=== PATIENT | female | born 1995 | race Caucasian/White ===

== ENCOUNTER 2017-11-30 05:50 | Inpatient (IN) ==
[2017-11-30 06:13] LABS: Microscopic, Urine URINE MICROSCOPIC (MICROSCOPIC)
[2017-11-30 06:15] LABS: Basophils # 0.1 K/mm3 (0-0.2); Basophils % 0.3 % (0.1-2.0); Eosinophils # 0.3 K/mm3 (0.0-0.4); Eosinophils % 1.6 % (0.1-12.0); Hematocrit 41.4 % (37.0-47.0); Hemoglobin 13.5 g/dL (12.2-16.2); Lymphocytes # 2.9 K/mm3 (0.7-4.5); Mean Corpuscular HGB Conc 32.7 g/dL (31.8-35.4); Mean Corpuscular Hemoglobin 29.5 pg (27.0-31.2); Mean Corpuscular Volume 90.1 fl (81-99); Mean Platelet Volume 7.7 fl (7.4-10.4); Monocytes # 1.3 K/mm3 (0.1-1.0); Monocytes % 6.8 % (1.7-9.3); Neutrophils # 14.7 K/mm3 (1.8-7.8); Neutrophils % 76.4 % (37.0-80.0); Platelet Count 399 K/mm3 (142-424); Red Cell Distribution Width 12.6 % (11.5-17.5); White Blood Count 19.2 K/mm3 (4.8-10.8)
[2017-11-30 06:17] LABS: Appearance,Urine CLOUDY (Clear); Bilirubin,Urine Negative (Negative); Blood, Urine 3+ (Negative); Color,Urine YELLOW (Yellow); Glucose,Urine (UA) Negative (Negative); Ketones,Urine Negative (Negative); Leukocyte Esterase,Urine 2+ (Negative); Protein,Urine TRACE (Negative); Specific Gravity, Urine 1.025 (1.005-1.030)
[2017-11-30 06:25] LABS: Bacteria,Urine 4+ /lpf; Mucus,Urine 1+ /lpf
[2017-11-30 06:27] LABS: Albumin/Globulin Ratio 0.6 (1.1-1.8); Anion Gap 11.7 mEq/L (5-15); Bilirubin,Total 0.5 mg/dL (0.2-1.0); Calcium 8.6 mg/dL (8.5-10.1); Globulin 5.1 gm/dl (1.3-3.2); Potassium 3.7 mmoL/L (3.5-5.1); Total Protein,Serum 8.1 gm/dL (6.4-8.2)
[2017-11-30 06:52] LABS: C-Reactive Protein 18.6 mg/L (0.0-0.9)
[2017-11-30 07:06] LABS: Eosinophils % 1 % (0-3); Lymphocytes % 13 % (10-50); Monocytes % 8 % (2-9); Neutrophils % 74 % (42-76); Total Cells Counted 100
--- NOTE | 2017-11-30 07:21 | Emergency Department Note ---
ED Disposition Condition on Discharge: Good - Critical Care Critical Care Time: No <Bautista Benton S - Last Filed: 11/30/17 07:40> Condition on Discharge: Fair - Critical Care Critical Care Time: No <CarasergeEdwinmarlena - Last Filed: 11/30/17 11:14> Clinical Impression: Ovarian cyst Acute appendicitis Qualifiers: Acute appendicitis type: unspecified acute appendicitis type Qualified Code(s): K35.80 - Unspecified acute appendicitis Disposition: Still a Patient Instructions: DI for Acute Abdomen Referrals: Provider,Referral, [Primary Care Provider] - Attestation: On 11/30/17, the high probability of a clinically significant, sudden or life threatening deterioration of the following system(s) required my full and direct attention, intervention and personal management. The time I documented below is in addition to time spent performing reported procedures but includes the following listed in this critical care notation. Medical Decision Making - Medical Records Medical records reviewed: Yes: I reviewed the patient's medical records. - James Inquiry Pt receiving controlled substance: No - Lab Data Lab results reviewed: Yes: I reviewed the patient's lab results. Result diagrams: 11/30/17 06:00 11/30/17 06:00 - CT Data CT Scan: Abdomen, Pelvis Time Received: 07:[address] Reviewed: Yes: I have viewed the radiologist's interpretation Preliminary Findings: Abnormal (appendicitis) - Physician Consults Physician Consulted: nino Reason -: Pt condition <Bautista Benton - Last Filed: 11/30/17 07:40> - James Inquiry Pt receiving controlled substance: No James was queried for this patient: No - Lab Data Result diagrams: 11/30/17 06:00 11/30/17 06:00 - CT Data CT Scan: Abdomen, Pelvis ED CT Reviewed: Yes: I have viewed the radiologist's interpretation Preliminary Findings: Abnormal <Haroon Ambrose - Last Filed: 11/30/17 11:14> Vital Signs: 11/30/17 05:51 11/30/17 06:35 11/30/17 08:09 Temperature 98.7 F Temperature Source Oral Pulse Rate [Right Radial] 96 H 105 H 114 H Respiratory Rate 16 24 Blood Pressure [Left Arm] Blood Pressure [Right Arm] 134/99 H 114/85 Blood Pressure Mean [Left Arm] Blood Pressure Mean [Right Arm] 110 94 Blood Pressure Source [Left Arm] Blood Pressure Position [Left Arm] Blood Pressure Position [Right Arm] Supine 02 Sat by Pulse Oximetry 96 95 98 Oxygen Delivery Method Room Air Room Air 11/30/17 09:00 11/30/17 09:41 11/30/17 10:02 Temperature 99.3 F 102.7 F H 101.5 F H Temperature Source Oral Oral Oral Pulse Rate [Right Radial] 130 H 141 H 140 H Respiratory Rate 20 20 22 Blood Pressure [Left Arm] 143/89 H 141/88 H 131/80 Blood Pressure [Right Arm] Blood Pressure Mean [Left Arm] 107 105 97 Blood Pressure Mean [Right Arm] Blood Pressure Source [Left Arm] Automatic Cuff Automatic Cuff Automatic Cuff Blood Pressure Position [Left Arm] Supine Sitting Sitting Blood Pressure Position [Right Arm] 02 Sat by Pulse Oximetry 98 97 99 Oxygen Delivery Method Room Air Room Air Room Air - Lab Data Lab Results 11/30/17 05:50: Urine Color Yellow, Urine Appearance Cloudy, Urine pH 7.0, Ur Specific [place] 1.025, Urine Protein Trace, Urine Glucose (UA) Negative, Urine Ketones Negative, Urine Blood 3+, Urine Nitrate Negative, Urine Bilirubin Negative, Urine Urobilinogen 1.0, Ur Leukocyte Esterase 2+ A, Urine RBC 10-20, Urine WBC 5-10, Ur Squamous Epith Cells 3-5, Urine Bacteria 4+, Urine Mucus 1+ 11/30/17 05:50: Urine HCG, Qual Negative 11/30/17 06:00: WBC 19.2 H, RBC 4.60, Hgb 13.5, Hct 41.4, MCV 90.1, MCH 29.5, MCHC 32.7, RDW 12.6, Plt Count 399, MPV 7.7, Neut % (Auto) 76.4, Lymph % (Auto) 15.0, [place] % (Auto) 6.8, Eos % (Auto) 1.6, Baso % (Auto) 0.3, Neut # (Auto) 14.7 H, Lymph # (Auto) 2.9, [place] # (Auto) 1.3 H, Eos # (Auto) 0.3, Baso # (Auto) 0.1, Total Counted 100, Neutrophils % (Manual) 74, Band Neutrophils % 2.0, Lymphocytes % (Manual) 13, Atypical Lymphs % 2.0, Monocytes % (Manual) 8, Eosinophils % (Manual) 1, Platelet Estimate Normal 11/30/17 06:00: Sodium 137, Potassium 3.7, Chloride 102, Carbon Dioxide 27, Anion Gap 11.7, BUN 11, Creatinine 0.70, Estimated Creat Clear 147, Estimated GFR 104, Est GFR ( Amer) 125, Glucose 140 H, Calcium 8.6, Total Bilirubin 0.5, AST 14 L, ALT 14, Alkaline Phosphatase 86, C-Reactive Protein 18.6 H, Total Protein 8.1, Albumin 3.0 L, Globulin 5.1 H, Albumin/Globulin Ratio 0.6 L, Amylase 34, Lipase 104 11/30/17 06:00: ESR 47 H Orders (Tests/Meds): ED MEDICATIONS Generic Name Dose Route Start Last Admin Trade Name Freq PRN Reason Stop Dose Admin Sodium Chloride 10 ml 11/30/17 09:43 Saline Flush 10ml Syringe IV 11/30/17 21:43 NEEDED PRN Maintain IV Site Discontinued Medications Generic Name Dose Route Start Last Admin Trade Name Freq PRN Reason Stop Dose Admin Diatrizoate Meglum/Diatrizoate Sod 30 ml 11/30/17 07:38 11/30/17 07:42 Gastrografin 66%-10% 30ml PO 11/30/17 07:39 30 ml ONCE ONE Administration Famotidine 20 mg 11/30/17 05:57 11/30/17 05:58 Pepcid 20mg/2ml Vial IV 11/30/17 05:58 20 mg ONCE ONE Administration Sodium Chloride 1,000 mls @ 999 mls/hr 11/30/17 06:00 11/30/17 05:58 Sod Chlor 0.9% 1000ml Bag IV 11/30/17 07:00 999 mls/hr .Q1H1M DANIEL Administration Sodium Chloride 1,000 mls @ 999 mls/hr 11/30/17 09:45 11/30/17 09:46 Sod Chlor 0.9% 1000ml Bag IV 11/30/17 10:45 999 mls/hr .Q1H1M DANIEL Administration Ertapenem 1 gm/ Sodium 50 mls @ 100 mls/hr 11/30/17 09:57 11/30/17 11:10 Chloride IV 11/30/17 09:58 Not Given ONCE ONE Protocol Iopamidol 75 ml 11/30/17 09:52 11/30/17 09:53 [id number]; 75ml Vial IV 11/30/17 09:53 75 ml ONCE ONE Administration Protocol Ketorolac Tromethamine 30 mg 11/30/17 06:26 11/30/17 06:32 Toradol 30mg/Ml Vial IV 11/30/17 06:27 30 mg ONCE ONE Administration Metoclopramide HCl 10 mg 11/30/17 05:57 11/30/17 05:58 Reglan 10mg/2ml Vial IVP 11/30/17 05:58 10 mg ONCE ONE Administration Sodium Chloride 10 ml 11/30/17 09:52 11/30/17 09:53 Rad-Saline Flush 10ml Syringe IV 11/30/17 09:53 10 ml ONCE ONE Administration ORDERS Category Date Time Status Lactic Acid Stat Lab 11/30/17 10:40 Received Urinalysis and Microscopic Stat Lab 11/30/17 05:50 Ordered Blood Culture Stat Micro 11/30/17 10:40 Received Urine Culture Stat Micro 11/30/17 05:50 Received - CT Data Findings Narrative: [address] report with contrast: MPRESSION: 1. Normal appendix not identified. There does appear to be a thickened appendix consistent with appendicitis with inflammatory changes in the pelvis and a small amount fluid in the pelvis. There are multiple unopacified bowel loops present within the abdomen/pelvis which could obscure or mimic pathology. If clinical findings are not concordant then, consider repeating exam with IV and oral contrast administration 2. Right adnexal soft tissue mass at 5 x 4.6 cm. This could represent an enlarged ovary. Abscess or phlegmonous changes included in the differential diagnosis. (Bautista Benton) [address] report with contrast: MPRESSION: 1. Normal appendix not identified. There does appear to be a thickened appendix consistent with appendicitis with inflammatory changes in the pelvis and a small amount fluid in the pelvis. There are multiple unopacified bowel loops present within the abdomen/pelvis which could obscure or mimic pathology. If clinical findings are not concordant then, consider repeating exam with IV and oral contrast administration 2. Right adnexal soft tissue mass at 5 x 4.6 cm. This could represent an enlarged ovary. Abscess or phlegmonous changes included in the differential diagnosis. (Haroon Ambrose) Medical Decision Narrative: Incoming physician Dr. Ambrose; s: I reviewed Dr. Benton's and Dr. Zheng's report the patient had right lower quadrant pain for 2 days came to the ED was found to have a white count of [address] scan suspicious for appendicitis with recommendations for a CT scan p.o. study. Currently the patient had no pain she had no vomiting. O: WBCs are 19k Soft abdomen with right lower quadrant tenderness chest clear to auscultation heart is regular rate and rhythm. Lower extremity no edema. A/p: Right lower quadrant pain CT scan with p.o. and IV contrast is pending. ED course: Upon return from the CT scan the patient developed a fever of 101.5F , covers were removed IV fluids were given and I ordered blood cultures and lactic acid. I notified Dr. Jang of the clinical updates and that the CT scan report is ready. P.S. She did not receive IV antibiotics due to preop protocol at [facility]. (Bautista Benton) Incoming physician Dr. Ambrose; s: I reviewed Dr. Benton's and Dr. Zheng's report the patient had right lower quadrant pain for 2 days came to the ED was found to have a white count of [address] scan suspicious for appendicitis with recommendations for a CT scan p.o. study. Currently the patient had no pain she had no vomiting. O: WBCs are 19k Soft abdomen with right lower quadrant tenderness chest clear to auscultation heart is regular rate and rhythm. Lower extremity no edema. A/p: Right lower quadrant pain CT scan with p.o. and IV contrast is pending. ED course: Upon return from the CT scan the patient developed a fever of 101.5F , covers were removed IV fluids were given and I ordered blood cultures and lactic acid. I notified Dr. Jang of the clinical updates and that the CT scan report is ready. P.S. She did not receive IV antibiotics due to preop protocol at [facility]. 1110 temperature came down to 9 999.6 she was taken by the OR crew to the operating room. (Haroon Ambrose) Nausea/Vomiting/Diarrhea HPI - General Mode of Arrival: EMS Source of Information: Patient, Significant Other, Medical Record Limitations: No Limitations Description of Symptoms (Recalled from ER Triage Doc. by RN): pt states that 2-3 days ago she had some right lower quad pain that went away. pt states that the pain returned tonight and is unbearable. pt states she is having some nausea/vomiting also. pt denies diarrhea. - History of Present Illness MD complaint: nausea, vomiting, abdominal pain Onset (ago): day(s) Associated Abdominal Pain: Yes Location of pain: RLQ Severity: moderate Associated symptoms: denies other symptoms <Bautista Benton - Last Filed: 11/30/17 07:40> <Haroon Ambrose - Last Filed: 11/30/17 11:14> - General Chief complaint: Abdominal Pain Stated complaint: abdominal pain Time Seen by Provider: 11/30/17 06:20 - History of Present Illness HPI Narrative: onset of progressive rt lower abd pain over the last few days with n/v (Bautista Benton) onset of progressive rt lower abd pain over the last few days with n/v (Haroon Ambrose) - Related Data Home Medications Medication Instructions Recorded Confirmed No Known Home Medications 11/30/17 11/30/17 Allergies Allergy/AdvReac Type Severity Reaction Status Date / Time No Known Allergies Allergy Verified 11/30/17 05:57 [facility] History I have reviewed the patient's past medical history: Yes Medical History: Denies:: Cancer, Diabetes Mellitus Type 1, Diabetes Mellitus Type 2, MRSA Amputation: No - Social History Smoking Status: Never smoker Alcohol Intake: never - Psychiatric History Expresses thoughts of harming self/others: None Suicide Plan Description: No Plan <Bautista Benton - Last Filed: 11/30/17 07:40> ROS Obtained: Yes All systems reviewed & no additional complaints - Constitutional Constitutional: Denies fever(s) - Eyes Eyes: Denies change in vision - ENT Ears, Nose, Mouth, and Throat: Denies sore throat - Cardiovascular Cardiovascular: Denies chest pain - Respiratory Respiratory: No cough - Gastrointestinal Gastrointestingal: Reports: as per HPI, abdominal pain, nausea, vomiting - Genitourinary Female Genitourinary: Denies hematuria - Musculoskeletal Musculoskeletal: Denies joint pain - Integumentary/Breasts Skin/Breast: Denies rash - Neurologic Neurologic: Denies seizure-like activity <Bautista Benton - Last Filed: 11/30/17 07:40> Physical Exam - General General appearance: alert, in no apparent distress - Head Head exam: normocephalic - Eye Eye exam: Present: PERRL, EOMI - ENT ENT exam: Present: mucous membranes moist - Neck Neck exam: Present: trachea midline - Respiratory Respiratory exam: Present: normal lung sounds bilaterally - Cardiovascular Cardiovascular exam: Present: regular rate - Abdominal Exam Abdominal exam: Present: soft, tenderness at McBur[place]'s Point Abdominal tenderness: Present: RLQ, moderate - Extremities Exam Extremities exam: Present: full ROM - Neurological Exam Neurological exam: Present: alert, oriented X3, CN II-XII intact - Psychiatric Psychiatric exam: Present: normal affect - Skin Skin exam: Absent: rash <Bautista Benton - Last Filed: 11/30/17 07:40>
--- NOTE | 2017-11-30 07:45 | Consult Report ---
*Admission Date: 11/30/17 *Chief complaint: Abdominal Pain *History of present illness: White female. She states that 2 or 3 days ago she had developed some pain in the right lower quadrant. This had been self-limited and resolved. Overnight she developed recurrent pain occurring suddenly in the right lower quadrant and right pelvic area with radiation across the lower belt line area. She did have some nausea. She tried ibuprofen without relief. She presented to the emergency department. She was evaluated and found to have a leukocytosis and somewhat increased inflammatory markers. She underwent CT scan of the abdomen and pelvis without any contrast. Revealed questionable findings of acute ap pendicitis and surgical consultation was obtained. Patient was seen and evaluated in the emergency department. She states that her pain had resolved. She is worried about it recurring. She denies any change in bowel habits. Denies any vaginal discharge or dysuria. Review of Systems - Review of Systems Review of systems:: pertinent systems reviewed and negative unless documented below - Constitutional Denies anorexia - Eyes Denies change in vision - ENT Denies abnormal hearing - *Cardiovascular Denies chest pain - *Respiratory Denies shortness of breath - *Gastrointestinal Reports abdominal pain, Denies change in bowel habits, Denies constipation - *Musculoskeletal Denies abnormal walking - *Neurologic Denies dizziness, Denies seizure-like activity [facility] History Medical History: Denies:: Cancer, Diabetes Mellitus Type 1, Diabetes Mellitus Type 2, MRSA Amputation: No - *Social History Smoking Status: Never smoker Alcohol Intake: never - Psychiatric History Expresses thoughts of harming self/others: None Suicide Plan Description: No Plan Meds Home Medications Medication Instructions Recorded Confirmed Type No Known Home Medications 11/30/17 11/30/17 History Allergies Allergy/AdvReac Type Severity Reaction Status Date / Time No Known Allergies Allergy Verified 11/30/17 05:57 Exam Vital signs and Labs for Last 24 Hours: Temp Pulse Resp BP Pulse Ox 98.7 F 105 H 24 114/85 95 11/30/17 05:51 11/30/17 06:35 11/30/17 06:35 11/30/17 06:35 11/30/17 06:35 Laboratory Results - last 24 hr 11/30/17 05:50: Urine Color Yellow, Urine Appearance Cloudy, Urine pH 7.0, Ur Specific [place] 1.025, Urine Protein Trace, Urine Glucose (UA) Negative, Urine Ketones Negative, Urine Blood 3+, Urine Nitrate Negative, Urine Bilirubin Negative, Urine Urobilinogen 1.0, Ur Leukocyte Esterase 2+ A, Urine RBC 10-20, Urine WBC 5-10, Ur Squamous Epith Cells 3-5, Urine Bacteria 4+, Urine Mucus 1+ 11/30/17 05:50: Urine HCG, Qual Negative 11/30/17 06:00: WBC 19.2 H, RBC 4.60, Hgb 13.5, Hct 41.4, MCV 90.1, MCH 29.5, MCHC 32.7, RDW 12.6, Plt Count 399, MPV 7.7, Neut % (Auto) 76.4, Lymph % (Auto) 15.0, Benton % (Auto) 6.8, Eos % (Auto) 1.6, Baso % (Auto) 0.3, Neut # (Auto) 14.7 H, Lymph # (Auto) 2.9, Benton # (Auto) 1.3 H, Eos # (Auto) 0.3, Baso # (Auto) 0.1, Total Counted 100, Neutrophils % (Manual) 74, Band Neutrophils % 2.0, Lymphocytes % (Manual) 13, Atypical Lymphs % 2.0, Monocytes % (Manual) 8, Eosinophils % (Manual) 1, Platelet Estimate Normal 11/30/17 06:00: Sodium 137, Potassium 3.7, Chloride 102, Carbon Dioxide 27, Anion Gap 11.7, BUN 11, Creatinine 0.70, Estimated Creat Clear 147, Estimated GFR 104, Est GFR ( Amer) 125, Glucose 140 H, Calcium 8.6, Total Bilirubin 0.5, AST 14 L, ALT 14, Alkaline Phosphatase 86, C-Reactive Protein 18.6 H, Total Protein 8.1, Albumin 3.0 L, Globulin 5.1 H, Albumin/Globulin Ratio 0.6 L, Amylase 34, Lipase 104 11/30/17 06:00: ESR 47 H I & O for Last 24 hours: Intake & Output 11/27/17 11/28/17 11/29/17 11/30/17 11:59 11:59 11:59 11:59 Weight 164 lb - Constitutional no acute distress - *Routine HEENT Exam Head: Present: normocephalic Eye: Present: EOMI, PERRL ENT: Present: mucous membranes moist - *Routine Respiratory Exam Present: CTA bilaterally - *Routine Cardiovascular Exam Present: RRR - *Routine Abdominal Exam Present: soft, tenderness Comments: She has some tenderness in the right lower quadrant with voluntary guarding. No rebound. Results - Labs 11/30/17 06:00 11/30/17 06:00 Laboratory Results - last 24 hr 11/30/17 05:50: Urine Color Yellow, Urine Appearance Cloudy, Urine pH 7.0, Ur Specific [place] 1.025, Urine Protein Trace, Urine Glucose (UA) Negative, Urine Ketones Negative, Urine Blood 3+, Urine Nitrate Negative, Urine Bilirubin Negative, Urine Urobilinogen 1.0, Ur Leukocyte Esterase 2+ A, Urine RBC 10-20, Urine WBC 5-10, Ur Squamous Epith Cells 3-5, Urine Bacteria 4+, Urine Mucus 1+ 11/30/17 05:50: Urine HCG, Qual Negative 11/30/17 06:00: WBC 19.2 H, RBC 4.60, Hgb 13.5, Hct 41.4, MCV 90.1, MCH 29.5, MCHC 32.7, RDW 12.6, Plt Count 399, MPV 7.7, Neut % (Auto) 76.4, Lymph % (Auto) 15.0, Benton % (Auto) 6.8, Eos % (Auto) 1.6, Baso % (Auto) 0.3, Neut # (Auto) 14.7 H, Lymph # (Auto) 2.9, Benton # (Auto) 1.3 H, Eos # (Auto) 0.3, Baso # (Auto) 0.1, Total Counted 100, Neutrophils % (Manual) 74, Band Neutrophils % 2.0, Lymphocytes % (Manual) 13, Atypical Lymphs % 2.0, Monocytes % (Manual) 8, Eosinophils % (Manual) 1, Platelet Estimate Normal 11/30/17 06:00: Sodium 137, Potassium 3.7, Chloride 102, Carbon Dioxide 27, Anion Gap 11.7, BUN 11, Creatinine 0.70, Estimated Creat Clear 147, Estimated GFR 104, Est GFR ( Amer) 125, Glucose 140 H, Calcium 8.6, Total Bilirubin 0.5, AST 14 L, ALT 14, Alkaline Phosphatase 86, C-Reactive Protein 18.6 H, Total Protein 8.1, Albumin 3.0 L, Globulin 5.1 H, Albumin/Globulin Ratio 0.6 L, Amylase 34, Lipase 104 11/30/17 06:00: ESR 47 H Assessment and Plan - Assessment and plan all Dx Assessment and Plan for all problems:: Patient does have tenderness in the right lower quadrant. However, she states that her pain has dramatically improved since presentation. Due to this atypical clinical course for appendicitis and due to ambiguity and equivocal nature of the noncontrast CT scan I would advocate CT scan with actual contrast. I did inform her that this may very well be acute appendicitis and require surgical intervention I briefly discussed the nature of this process with her. Plan will be to await CT and with contrast.
--- NOTE | 2017-11-30 15:08 | Operative Note ---
Date of procedure: 11/30/17 Pre-op Diagnosis:: Acute appendicitis Post-op Diagnosis:: Acute gangrenous perforated appendicitis with established peritonitis Procedure performed:: 1. Diagnostic laparoscopy 2. Open appendectomy Surgeon:: Keith Jang MD ICE HOCKEY COACH:: Gen Wood Anesthesia: GETA Estimated blood loss (mL): 20 Clinical Note:: Patient is a 22-year-old white female. She states that a couple of days ago she had developed some right lower quadrant pain. This transiently resolved with ibuprofen. Overnight she had developed recurrent severe right lower quadrant pain. She presented to the emergency department where she was seen and evaluated. She was found to have a leukocytosis of 19,000. She underwent CT scan without any contrast whatsoever. This reveals findings of possible inflammation in the right lower quadrant. Surgical consultation was obtained. Patient did have tenderness in the right lower quadrant but due to the equ ivocally diagnostic noncontrast CT scan and atypical symptoms plan was made to proceed with CT scan with actual contrast. She underwent CT scan with IV and oral contrast which revealed findings mostly consistent with significant appendicitis with possible phlegmon in the right pelvis doubt abscess. Plan was made for urgent appendectomy. Operative findings:: Patient had evidence of established feculent peritonitis with cloudy somewhat feculent fluid throughout the abdomen mostly in the pelvis, right paracolic gutter, and perihepatic space. She had some thickening and edema and induration of small bowel loops consistent with relatively long-standing established peritonitis. Appendix was markedly thickened and densely adherent inferior to the right tube with abscess tip of the appendix, markedly enlarged, with necrosis and perforation. Operative note:: Consent was obtained patient was taken to the operating room. She was given pre operative intravenous antibiotics. In the operating room she was placed in a supine position. General anesthesia was induced via endotracheal tube. Gilmore catheter was placed. Abdomen was prepped and draped in the standard surgical fashion. Infraumbilical skin incision was made and while performing abdominal wall lift Veress needle was inserted. CO2 pneumoperitoneum was achieved to 15 mmHg. A 12 mm trocar was inserted at the umbilicus. Intraperitoneal contents were visualized. She was noted to have purulent somewhat feculent fluid in the pelvis, right paracolic gutter, and perihepatic space. 5 mm trocar was inserted in the suprapubic location and 5 mm trocar was inserted in the right upper abdominal area. 10 mm laparoscope was replaced with 5 mm 30 degree laparoscope inserted through the right upper abdominal trocar site. A few 100 cc of purulent feculent fluid was suctioned free from the abdomen and pelvis. Patient was positioned in Trendelenburg with left side down. Delineation of structures in the right lower quadrant was somewhat difficult initially. Inferior to the right tube and ovary there was a markedly inflamed somewhat necrotic appearing mass which was exuding pus. This was suctioned free. Further dissection ultimately revealed this to be the tip of the appendix. The proximal appendix was mildly identified at the tip of the cecum. Prolonged dissection was carried out in an attempt to dissect the appendix free from the surrounding structures including small bowel, peritoneum, and right tube and ovary without success. Decision was then made to perform O procedure. The abdominal wall was marked anteriorly for planned incision. Patient was positioned in a neutral position. Incision was made inferior to traditional McBurney's incision due to the location of the appendix and for possible extension into a Pfannenstiel type incision. Dissection was carried down through subcutaneous tissues and Araceli's fascia using electrocautery. Abdominal wall muscles were opened in a muscle- splitting technique dividing the external oblique, internal oblique, and transversalis muscles along the length fibers. Cloudy fluid was encountered. Cecum was delivered through the wound. It was initially rather difficult to deliver the appendix and blunt dissection was carried out digitally to free the appendix from its surrounding structures. Ultimately the appendix was able be delivered through the wound. The mesoappendix was sequentially clamped divided and ligated with 2-0 Vicryl sutures. Dissection was carried down to the appendiceal base. A straight hemostat crushing clamp was placed at the appendiceal base which was then repositioned slightly distally. Appendix was doubly ligated with 2-0 Vicryl suture and the appendix was sharply incised and sent off as a specimen. Please note that the appendix was massively distended and thickened with necrosis and perforation. The appendiceal stump was then cauterized with electrocautery. The appendiceal stump was inverted with multiple interrupted 3-0 Nurolon seromuscular sutures. Cecum was returned to the peritoneal cavity. The peritoneum was closed with a running locking 2-0 Vicryl suture. Muscle layers were closed with running 0 PDS with irrigation performed between each layer. Araceli's fascia was closed with a running locking 2-0 Vicryl. Skin was closed with jorje. At this time plan was made to perform completion laparoscopy. 11 mm trocar was inserted at the umbilicus and 5 mm trochars were inserted in the previous incisions in the suprapubic location and in the right upper abdomen. CO2 pneumoperitoneum was reestablished. The tip of the cecum and appendiceal stump were inspected for integrity which was assured. The pelvis and peritoneal cavity was thoroughly irrigated and aspirated until clear with approximately 8 L of warm saline. Trochars were then removed as CO2 pneumoperitoneum was evacuated fascia at the umbilicus was closed with 0 Vicryl suture. Remaining trocar skin incisions were closed with jorje. Clean dry sterile dressings were applied. Condition: stable Disposition: PACU Specimens:: Appendix Complications:: None
--- NOTE | 2017-11-30 15:13 | Progress Note ---
[facility] Anesthesia Checklist - Structural Data Admitted From: Inpatient Planned Operative Procedure/s: lap appy Consent for Planned Operative Procedure(s) Verified: Yes Verified Documents: Surgical Consent - Airway Assessment C-Spine Mobility Assessed: Yes TMJ Mobility Assessed: Yes Dentition: Good Dentition - Neurological Assessment Level of Consciousness: Awake, Alert, Appropriate - Anesthesia Plan Anesthesia Risk discussed: Yes Anesthesia Plan: Verified ASA Class: I Anesthesia Type: General [facility] History I have reviewed the patient's past medical history: Yes Medical History: Denies:: Cancer, Diabetes Mellitus Type 1, Diabetes Mellitus Type 2, MRSA, Seizures Other Medical History: Denies: Blood Transfusion Reaction Amputation: No - *Social History Smoking Status: Never smoker Alcohol Intake: never - Psychiatric History Expresses thoughts of harming self/others: None Suicide Plan Description: No Plan
--- NOTE | 2017-11-30 15:14 | Progress Note ---
[facility] Anesthesia Record Part II Discharge Time: 15:40 Destination: floor PACU nurse assessment reviewed?: Yes Patient Condition:: Good Anesthesia Complications:: None
--- NOTE | 2017-11-30 15:14 | Progress Note ---
[facility] Anesthesia Record Part I Intake, IV Amount: 3,200 Estimated blood loss (mL): 200 Urine output (mL): 600 Blood Pressure: 120/78 SaO2: 96 Pulse Rate: 109 Respiratory Rate: 12 Temperature: 97.1 F Patient is:: Awake, Stable Stable to PACU at:: 15:10
[2017-12-01 07:23] LABS: Albumin Level 1.9 gm/dL (3.4-5.0); Albumin/Globulin Ratio 0.5 (1.1-1.8); Anion Gap 10.7 mEq/L (5-15); Bilirubin,Total 0.6 mg/dL (0.2-1.0); Calcium 8.1 mg/dL (8.5-10.1); Globulin 4.1 gm/dl (1.3-3.2); Potassium 3.7 mmoL/L (3.5-5.1)
[2017-12-01 07:58] LABS: Basophils % 0.1 % (0.1-2.0); Eosinophils % 0.1 % (0.1-12.0); Hematocrit 35.2 % (37.0-47.0); Hemoglobin 11.4 g/dL (12.2-16.2); Lymphocytes # 0.9 K/mm3 (0.7-4.5); Lymphocytes % 5.2 K/mm3 (10-50); Mean Corpuscular HGB Conc 32.3 g/dL (31.8-35.4); Mean Corpuscular Hemoglobin 29.1 pg (27.0-31.2); Mean Platelet Volume 7.7 fl (7.4-10.4); Monocytes # 0.6 K/mm3 (0.1-1.0); Monocytes % 3.3 % (1.7-9.3); Neutrophils # 16.2 K/mm3 (1.8-7.8); Neutrophils % 91.3 % (37.0-80.0); Platelet Count 319 K/mm3 (142-424); Red Blood Count 3.91 M/mm3 (4.20-5.40); Red Cell Distribution Width 12.8 % (11.5-17.5); White Blood Count 17.8 K/mm3 (4.8-10.8)
[2017-12-01 09:48] LABS: Lymphocytes % 6 % (10-50); Monocytes % 3 % (2-9); Neutrophils % 90 % (42-76); RBC Morphology Normal; Total Cells Counted 100
--- NOTE | 2017-12-01 10:49 | Progress Note ---
Subjective Patient reports: feels better Narrative: Patient complains of being "hungry". Exam Vital signs and Labs for Last 24 Hours: Temp Pulse Resp BP Pulse Ox 98.7 F 110 H 20 128/88 98 12/01/17 07:55 12/01/17 07:55 12/01/17 07:55 12/01/17 07:55 12/01/17 07:55 Laboratory Results - last 24 hr 11/30/17 10:40: Lactate 1.8 11/30/17 12:15: Urine Color Yellow, Urine Appearance Clear, Urine pH 5.5, Ur Sp ecific [place] 1.015, Urine Protein Negative, Urine Glucose (UA) Negative, Urine Ketones 1+, Urine Blood 2+, Urine Nitrate Negative, Urine Bilirubin Negative, Urine Urobilinogen 0.2, Ur Leukocyte Esterase Negative, Urine RBC None, Urine WBC Occasional, Ur Squamous Epith Cells None, Urine Bacteria Trace 12/01/17 06:50: WBC 17.8 H, RBC 3.91 L, Hgb 11.4 L, Hct 35.2 L, MCV 90.0, MCH 29.1, MCHC 32.3, RDW 12.8, Plt Count 319, MPV 7.7, Neut % (Auto) 91.3 H, Lymph % (Auto) 5.2 L, [place] % (Auto) 3.3, Eos % (Auto) 0.1, Baso % (Auto) 0.1, Neut # (Auto) 16.2 H, Lymph # (Auto) 0.9, [place] # (Auto) 0.6, Eos # (Auto) 0.0, Baso # (Auto) 0.0, Total Counted 100, Neutrophils % (Manual) 90 H, Band Neutrophils % 1.0, Lymphocytes % (Manual) 6 L, Monocytes % (Manual) 3, Platelet Estimate No rmal, RBC Morphology Normal 12/01/17 06:50: Sodium 140, Potassium 3.7, Chloride 105, Carbon Dioxide 28, Anion Gap 10.7, BUN 6 L D, Creatinine 0.60, Estimated Creat Clear 171, Estimated GFR 124, Est GFR ( Amer) 150, Glucose 109 H, Calcium 8.1 L, Total Bilirubin 0.6, AST 12 L, ALT 11 L, Alkaline Phosphatase 62, Total Protein 6.0 L D, Albumin 1.9 L D, Globulin 4.1 H, Albumin/Globulin Ratio 0.5 L I & O for Last 24 hours: Intake & Output 11/28/17 11/29/17 11/30/17 12/01/17 11:59 11:59 11:59 11:59 Intake Total 1999 6935 / 6935 Output Total 2600 / 2600 Balance 1999 4335 / 4335 Weight 164 lb Microbiology Reports for the Last 24 Hours: Microbiology 11/30/17 05:50 Urine,Clean Catch Urine Culture - Preliminary NO GROWTH AFTER 24 HOURS - *Routine Abdominal Exam Present: soft, tenderness Progress Note: A&P Assessment and Plan for All Diagnoses:: Discontinue Gilmore catheter. Start clear liquids. Likely plan for intravenous antibiotics for at least 5 days postoperatively for established feculent peritonitis
--- NOTE | 2017-12-01 11:57 | Pharmacy Consult Notes ---
[facility] Pharmacy VTE Monitoring - Patient Demographics Admission date: 11/30/17 Report Date: 12/01/17 Time: 11:57 Allergies/Adverse Reactions: Patient Allergies No Known Allergies Allergy (Verified 11/30/17 05:57) Height: 1.63 m Weight: 74.389 kg Patient Problems: Current Active Problems Acute appendicitis (Acute) Ovarian cyst (Acute) - VTE Risk Labs: VTE Related Lab Results Hgb 11.4 g/dL (12.2-16.2) L 12/01/17 06:50 Hct 35.2 % (37.0-47.0) L 12/01/17 06:50 Plt Count 319 K/mm3 (142-424) 12/01/17 06:50 BUN 6 mg/dL (7-18) L D 12/01/17 06:50 Creatinine 0.60 mg/dL (0.55-1.02) 12/01/17 06:50 Estimated Creat Clear 171 mL/min (0-300) 12/01/17 06:50 Was VTE Risk Assessment Performed: Yes VTE Score: 1 VTE Risk Level: Very Low Risk - Prophylaxis VTE Prophylaxis Ordered?: Yes Types of VTE Prophylaxis: IPCS Knee High Location of Applied Device: Bilateral Lower Extremeties
[2017-12-02 06:01] LABS: Basophils % 0.1 % (0.1-2.0); Eosinophils # 0.1 K/mm3 (0.0-0.4); Eosinophils % 0.3 % (0.1-12.0); Hematocrit 36.2 % (37.0-47.0); Hemoglobin 11.6 g/dL (12.2-16.2); Lymphocytes # 0.9 K/mm3 (0.7-4.5); Lymphocytes % 4.2 K/mm3 (10-50); Mean Corpuscular Hemoglobin 28.9 pg (27.0-31.2); Mean Corpuscular Volume 90.3 fl (81-99); Mean Platelet Volume 7.7 fl (7.4-10.4); Monocytes # 1.6 K/mm3 (0.1-1.0); Monocytes % 7.8 % (1.7-9.3); Neutrophils # 18.1 K/mm3 (1.8-7.8); Neutrophils % 87.6 % (37.0-80.0); Platelet Count 299 K/mm3 (142-424); Red Blood Count 4.01 M/mm3 (4.20-5.40); Red Cell Distribution Width 12.9 % (11.5-17.5); White Blood Count 20.7 K/mm3 (4.8-10.8)
--- NOTE | 2017-12-02 06:25 | Progress Note ---
Subjective Patient reports: flatus (Feels "OK, but hot"), bowel movement Exam Vital signs and Labs for Last 24 Hours: Temp Pulse Resp BP Pulse Ox 102.9 F H 133 H 18 150/96 H 92 L 12/02/17 04:00 12/02/17 04:00 12/02/17 04:00 12/02/17 04:00 12/02/17 04:00 Laboratory Results - last 24 hr 12/01/17 06:50: WBC 17.8 H, RBC 3.91 L, Hgb 11.4 L, Hct 35.2 L, MCV 90.0, MCH 29.1, MCHC 32.3, RDW 12.8, Plt Count 319, MPV 7.7, Neut % (Auto) 91.3 H, Lymph % (Auto) 5.2 L, [place] % (Auto) 3.3, Eos % (Auto) 0.1, Baso % (Auto) 0.1, Neut # (Auto) 16.2 H, Lymph # (Auto) 0.9, [place] # (Auto) 0.6, Eos # (Auto) 0.0, Baso # (Auto) 0.0, Total Counted 100, Neutrophils % (Manual) 90 H, Band Neutrophils % 1.0, Lymphocytes % (Manual) 6 L, Monocytes % (Manual) 3, Platelet Estimate Normal, RBC Morphology Normal 12/01/17 06:50: Sodium 140, Potassium 3.7, Chloride 105, Carbon Dioxide 28, Anion Gap 10.7, BUN 6 L D, Creatinine 0.60, Estimated Creat Clear 171, Estimated GFR 124, Est GFR ( Amer) 150, Glucose 109 H, Calcium 8.1 L, Total Bilirubin 0.6, AST 12 L, ALT 11 L, Alkaline Phosphatase 62, Total Protein 6.0 L D, Albumin 1.9 L D, Globulin 4.1 H, Albumin/Globulin Ratio 0.5 L 12/02/17 05:34: WBC 20.7 H*, RBC 4.01 L, Hgb 11.6 L, Hct 36.2 L, MCV 90.3, MCH 28.9, MCHC 32.0, RDW 12.9, Plt Count 299, MPV 7.7, Neut % (Auto) 87.6 H, Lymph % (Auto) 4.2 L, [place] % (Auto) 7.8, Eos % (Auto) 0.3, Baso % (Auto) 0.1, Neut # (Auto) 18.1 H, Lymph # (Auto) 0.9, [place] # (Auto) 1.6 H, Eos # (Auto) 0.1, Baso # (Auto) 0.0 I & O for Last 24 hours: Intake & Output 11/29/17 11/30/17 12/01/17 12/02/17 11:59 11:59 11:59 11:59 Intake Total 1999 7175 / 7175 2714 / 2714 Output Total 3000 / 3000 300 / 300 Balance 1999 4175 / 4175 2414 / 2414 Weight 164 lb 164 lb Microbiology Reports for the Last 24 Hours: Microbiology 11/30/17 05:50 Urine,Clean Catch Urine Culture - Final NO GROWTH AFTER 48 HOURS - Constitutional no acute distress - *Routine Respiratory Exam Absent: respiratory distress - *Routine Cardiovascular Exam Present: tachycardia - *Routine Abdominal Exam Present: soft Comments: dressing intact. no cellulitis. Progress Note: A&P (1) Perforated appendicitis Status: Acute Assessment and plan: Increased leukocytosis, persistent tachycardia, and persistent fevers this morning. Now on Invanz for improved coverage...close follow-up of response ongoing. CBC will be repeated in the morning. May require repeat laparoscopy or CT scan (in the next few days...essentially too early at this point) for evaluation of possible abscess collection. Serial abdominal exams to continue. Diet will be cautiously advanced to full liquids; however, she will be made n.p.o. after midnight. 2 Liter LR Current Visit: Yes
[2017-12-02 07:55] LABS: Lymphocytes % 5 % (10-50); Monocytes % 6 % (2-9); Neutrophils % 87 % (42-76); RBC Morphology Normal; Total Cells Counted 100
[2017-12-03 05:59] LABS: Basophils % 0.1 % (0.1-2.0); Eosinophils # 0.2 K/mm3 (0.0-0.4); Eosinophils % 0.9 % (0.1-12.0); Hematocrit 35.3 % (37.0-47.0); Hemoglobin 11.5 g/dL (12.2-16.2); Lymphocytes % 5.4 K/mm3 (10-50); Mean Corpuscular HGB Conc 32.6 g/dL (31.8-35.4); Mean Corpuscular Hemoglobin 29.2 pg (27.0-31.2); Mean Corpuscular Volume 89.6 fl (81-99); Mean Platelet Volume 8.1 fl (7.4-10.4); Monocytes % 5.8 % (1.7-9.3); Neutrophils # 15.8 K/mm3 (1.8-7.8); Neutrophils % 87.7 % (37.0-80.0); Platelet Count 320 K/mm3 (142-424); Red Blood Count 3.94 M/mm3 (4.20-5.40)
[2017-12-03 06:07] LABS: Anion Gap 13.5 mEq/L (5-15); Calcium 7.8 mg/dL (8.5-10.1); Potassium 3.5 mmoL/L (3.5-5.1)
[2017-12-03 06:21] LABS: Anisocytosis 1+; Eosinophils % 1 % (0-3); Lymphocytes % 4 % (10-50); Neutrophils % 95 % (42-76); Total Cells Counted 100
--- NOTE | 2017-12-03 07:50 | Progress Note ---
Subjective Patient reports: feels better Narrative: Patient complains of some intermittent abdominal pain. Has been ambulating to bathroom. Antibiotics changed to Invanz yesterday and improvement in temperature and slight improvement in WBC. Exam Vital signs and Labs for Last 24 Hours: Temp Pulse Resp BP Pulse Ox 98.6 F 124 H 20 145/97 H 91 L 12/03/17 07:34 12/03/17 07:34 12/03/17 07:34 12/03/17 07:34 12/03/17 07:34 Laboratory Results - last 24 hr 12/02/17 05:34: Total Counted 100, Neutrophils % (Manual) 87 H, Band Neutrophils % 2.0, Lymphocytes % (Manual) 5 L, Monocytes % (Manual) 6, Platelet Estimate Normal, RBC Morphology Normal 12/02/17 07:55: Stl Aeromonas (PCR) Not detected, Stl C. cayetanensis PCR Not detected, Stool Rotavirus (PCR) Not detected, Stl Adenov F 40/41 PCR Not detected, Stool Astrovirus (PCR) Not detected, Stool Campylobacter PCR Not detected, Stl C.difficile Tox PCR Not detected, Stool Cryptosporidium PCR Not detected, Stl E.coli Shiga Tox PCR Not detected, Stool E coli O157 PCR Not detected, Stl Enterotoxigenic E PCR Not detected, Stool EPEC (PCR) Not detected, Stool EAEC (PCR) Not detected, Stl E. histolytica PCR Not detected, Stool Giardia Lamblia PCR Not detected, Stool Salmonella PCR Not detected, Stool Sapovirus (PCR) Not detected, Stl P. shigelloides PCR Not detected, Stl Shigella/EIEC PCR Not detected, St Y.enterocolitica PCR Not detected, Stool Vibrio (PCR) Not detected, Stl Vibrio cholerae PCR Not detected, Stl Norovirus GI/GII PCR Not detected 12/03/17 05:50: WBC 18.0 H, RBC 3.94 L, Hgb 11.5 L, Hct 35.3 L, MCV 89.6, MCH 29.2, MCHC 32.6, RDW 13.0, Plt Count 320, MPV 8.1, Neut % (Auto) 87.7 H, Lymph % (Auto) 5.4 L, [place] % (Auto) 5.8, Eos % (Auto) 0.9, Baso % (Auto) 0.1, Neut # (Auto) 15.8 H, Lymph # (Auto) 1.0, [place] # (Auto) 1.0, Eos # (Auto) 0.2, Baso # (Auto) 0.0, Total Counted 100, Neutrophils % (Manual) 95 H, Lymphocytes % (Manual) 4 L, Eosinophils % (Manual) 1, Platelet Estimate Normal, Anisocytosis 1+ 12/03/17 05:50: Sodium 134 L, Potassium 3.5, Chloride 99, Carbon Dioxide 25, Anion Gap 13.5, BUN 4 L D, Creatinine 0.52 L, Estimated Creat Clear 198, Estimated GFR 146, Est GFR ( Amer) 177, Glucose 109 H, Calcium 7.8 L I & O for Last 24 hours: Intake & Output 11/30/17 12/01/17 12/02/17 12/03/17 11:59 11:59 11:59 11:59 Intake Total 1999 7175 / 7175 2954 / 2954 7606 / 7606 Output Total 3000 / 3000 300 / 300 300 / 300 Balance 1999 4175 / 4175 2654 / 2654 7306 / 7306 Weight 164 lb 164 lb Microbiology Reports for the Last 24 Hours: Microbiology 11/30/17 10:40 Blood Blood Culture - Preliminary NO GROWTH AFTER 48 HOURS 11/30/17 10:12 Blood Blood Culture - Preliminary NO GROWTH AFTER 48 HOURS 11/30/17 05:50 Urine,Clean Catch Urine Culture - Final NO GROWTH AFTER 48 HOURS - Constitutional no acute distress - *Routine HEENT Exam Head: Present: normocephalic - *Routine Abdominal Exam Present: soft Comments: Some tenderness in RLQ and LLQ. No guarding or rebound. Progress Note: A&P (1) Perforated appendicitis Status: Acute Current Visit: Yes Assessment and Plan for All Diagnoses:: Full liquids. Continue IVF and antibiotics.
[2017-12-04 08:09] LABS: Basophils % 0.2 % (0.1-2.0); Eosinophils # 0.3 K/mm3 (0.0-0.4); Eosinophils % 2.5 % (0.1-12.0); Hematocrit 34.2 % (37.0-47.0); Hemoglobin 11.2 g/dL (12.2-16.2); Lymphocytes # 0.9 K/mm3 (0.7-4.5); Lymphocytes % 7.3 K/mm3 (10-50); Mean Corpuscular HGB Conc 32.9 g/dL (31.8-35.4); Mean Corpuscular Hemoglobin 29.5 pg (27.0-31.2); Mean Corpuscular Volume 89.7 fl (81-99); Monocytes # 1.3 K/mm3 (0.1-1.0); Monocytes % 10.6 % (1.7-9.3); Neutrophils # 9.6 K/mm3 (1.8-7.8); Neutrophils % 79.4 % (37.0-80.0); Platelet Count 326 K/mm3 (142-424); Red Blood Count 3.81 M/mm3 (4.20-5.40); Red Cell Distribution Width 13.2 % (11.5-17.5); White Blood Count 12.1 K/mm3 (4.8-10.8)
[2017-12-04 08:17] LABS: Anion Gap 12.6 mEq/L (5-15); Calcium 7.4 mg/dL (8.5-10.1); Potassium 3.6 mmoL/L (3.5-5.1)
--- NOTE | 2017-12-04 08:38 | Progress Note ---
Internal Medicine - PN: Subj *Date: 12/04/17 (N) *Time: 08:37 Exam Vital signs and Labs for Last 24 Hours: Temp Pulse Resp BP Pulse Ox 98.2 F 111 H 16 140/95 H 95 12/04/17 08:04 12/04/17 08:04 12/04/17 08:04 12/04/17 08:04 12/04/17 08:04 Laboratory Results - last 24 hr 12/04/17 07:45: WBC 12.1 H D, RBC 3.81 L, Hgb 11.2 L, Hct 34.2 L, MCV 89.7, MCH 29.5, MCHC 32.9, RDW 13.2, Plt Count 326, MPV 8.0, Neut % (Auto) 79.4, Lymph % (Auto) 7.3 L, [place] % (Auto) 10.6 H, Eos % (Auto) 2.5, Baso % (Auto) 0.2, Neut # (Auto) 9.6 H, Lymph # (Auto) 0.9, [place] # (Auto) 1.3 H, Eos # (Auto) 0.3, Baso # (Auto) 0.0 12/04/17 07:45: Sodium 136, Potassium 3.6, Chloride 103, Carbon Dioxide 24, BUN 2 L D, Creatinine 0.47 L, Glucose 145 H, Calcium 7.4 L I & O for Last 24 hours: Intake & Output 12/01/17 12/02/17 12/03/17 12/04/17 23:59 23:59 23:59 23:59 Intake Total 5149 / 5149 960 / 960 7366 / 7366 Output Total 1300 / 1300 1300 / 1300 Balance 3849 / 3849 960 / 960 6066 / 6066 Weight 74.389 kg Assessment and Plan (1) Perforated appendicitis Current visit: Yes Status: Acute Category: Medical Code(s): K35.32 - Acute appendicitis with perforation and localized peritonitis, without abscess The patient's infection will respond to the chosen ABx?: Yes Is the patient receiving the right drug, dose, and route?: Yes Could a more targeted ABx be ordered?: No (NO FEVER/WBC DECREASED)
--- NOTE | 2017-12-04 08:41 | Progress Note ---
Subjective Patient reports: no new complaints, feels better ("a little better") Exam Vital signs and Labs for Last 24 Hours: Temp Pulse Resp BP Pulse Ox 98.2 F 111 H 16 140/95 H 95 12/04/17 08:04 12/04/17 08:04 12/04/17 08:04 12/04/17 08:04 12/04/17 08:04 Laboratory Results - last 24 hr 12/04/17 07:45: WBC 12.1 H D, RBC 3.81 L, Hgb 11.2 L, Hct 34.2 L, MCV 89.7, MCH 29.5, MCHC 32.9, RDW 13.2, Plt Count 326, MPV 8.0, Neut % (Auto) 79.4, Lymph % (Auto) 7.3 L, [place] % (Auto) 10.6 H, Eos % (Auto) 2.5, Baso % (Auto) 0.2, Neut # (Auto) 9.6 H, Lymph # (Auto) 0.9, [place] # (Auto) 1.3 H, Eos # (Auto) 0.3, Baso # (Auto) 0.0 12/04/17 07:45: Sodium 136, Potassium 3.6, Chloride 103, Carbon Dioxide 24, BUN 2 L D, Creatinine 0.47 L, Glucose 145 H, Calcium 7.4 L I & O for Last 24 hours: Intake & Output 12/01/17 12/02/17 12/03/17 12/04/17 11:59 11:59 11:59 11:59 Intake Total 7175 / 7175 2954 / 2954 7606 / 7606 240 / 240 Output Total 3000 / 3000 300 / 300 300 / 300 1000 / 1000 Balance 4175 / 4175 2654 / 2654 7306 / 7306 -760 / -760 Weight 164 lb - Constitutional no acute distress - *Routine Respiratory Exam Absent: respiratory distress - *Routine Cardiovascular Exam Present: tachycardia ([less tachy]) - *Routine Abdominal Exam Present: soft, tenderness. Absent: rebound, guarding Comments: mostly TTP at incisions Progress Note: A&P (1) Perforated appendicitis Status: Acute Assessment and plan: slowly improving [WBC improved...HR improved...pain improving] continue abx slowly advance diet (include bread/crackers and PB) repeat CBC in AM decrease IVFs to 100 (likely decrease again or HLIV tomorrow) increase ambulation Current Visit: Yes
[2017-12-05 06:56] LABS: Basophils % 0.2 % (0.1-2.0); Eosinophils # 0.5 K/mm3 (0.0-0.4); Eosinophils % 3.3 % (0.1-12.0); Hematocrit 33.6 % (37.0-47.0); Hemoglobin 11.1 g/dL (12.2-16.2); Lymphocytes # 1.3 K/mm3 (0.7-4.5); Lymphocytes % 9.4 K/mm3 (10-50); Mean Corpuscular Hemoglobin 29.5 pg (27.0-31.2); Mean Corpuscular Volume 89.4 fl (81-99); Mean Platelet Volume 7.5 fl (7.4-10.4); Monocytes % 7.3 % (1.7-9.3); Neutrophils # 10.8 K/mm3 (1.8-7.8); Neutrophils % 79.8 % (37.0-80.0); Platelet Count 348 K/mm3 (142-424); Red Blood Count 3.75 M/mm3 (4.20-5.40); Red Cell Distribution Width 13.3 % (11.5-17.5); White Blood Count 13.5 K/mm3 (4.8-10.8)
--- NOTE | 2017-12-05 08:46 | Progress Note ---
Subjective Patient reports: no new complaints, flatus (feels "a little better") Exam Vital signs and Labs for Last 24 Hours: Temp Pulse Resp BP Pulse Ox 97.7 F 100 H 18 130/74 96 12/05/17 07:51 12/05/17 07:51 12/05/17 07:51 12/05/17 07:51 12/05/17 07:51 Laboratory Results - last 24 hr 12/04/17 07:45: Anion Gap 12.6, Estimated Creat Clear 219, Estimated GFR 164, Est GFR ( Amer) 199 12/05/17 06:51: WBC 13.5 H, RBC 3.75 L, Hgb 11.1 L, Hct 33.6 L, MCV 89.4, MCH 29.5, MCHC 33.0, RDW 13.3, Plt Count 348, MPV 7.5, Neut % (Auto) 79.8, Lymph % (Auto) 9.4 L, [place] % (Auto) 7.3, Eos % (Auto) 3.3, Baso % (Auto) 0.2, Neut # (Auto) 10.8 H, Lymph # (Auto) 1.3, [place] # (Auto) 1.0, Eos # (Auto) 0.5 H, Baso # (Auto) 0.0 I & O for Last 24 hours: Intake & Output 12/02/17 12/03/17 12/04/17 12/05/17 11:59 11:59 11:59 11:59 Intake Total 2954 / 2954 7606 / 7606 600 / 600 4243 / 4243 Output Total 300 / 300 300 / 300 1200 / 1200 200 / 200 Balance 2654 / 2654 7306 / 7306 -600 / -600 4043 / 4043 - Constitutional no acute distress - *Routine Respiratory Exam Absent: respiratory distress - *Routine Cardiovascular Exam Present: tachycardia Comments: minimal...much improved - *Routine Abdominal Exam Present: soft Comments: less TTP. incisions c/d/i Progress Note: A&P (1) Perforated appendicitis Status: Acute Assessment and plan: stable s/p appendectomy...HR improving...currently afebrile continue abx advance diet HLIV Current Visit: Yes
--- NOTE | 2017-12-06 07:40 | Progress Note ---
Subjective Narrative: Patient complains of "gas pains". Tolerating some soft diet. Exam Vital signs and Labs for Last 24 Hours: Temp Pulse Resp BP Pulse Ox 98.5 F 102 H 16 138/82 96 12/06/17 03:59 12/06/17 03:59 12/06/17 03:59 12/06/17 04:30 12/06/17 03:59 I & O for Last 24 hours: Intake & Output 12/03/17 12/04/17 12/05/17 12/06/17 11:59 11:59 11:59 11:59 Intake Total 7606 / 7606 600 / 600 4243 / 4243 480 / 480 Output Total 300 / 300 1200 / 1200 200 / 200 200 / 200 Balance 7306 / 7306 -600 / -600 4043 / 4043 280 / 280 Microbiology Reports for the Last 24 Hours: Microbiology 11/30/17 10:40 Blood Blood Culture - Final NO GROWTH AFTER 5 DAYS 11/30/17 10:12 Blood Blood Culture - Final NO GROWTH AFTER 5 DAYS - *Routine Abdominal Exam Present: soft Comments: Mild tenderness. Incisions clean. Progress Note: A&P (1) Perforated appendicitis Status: Acute Current Visit: Yes Assessment and Plan for All Diagnoses:: Continue IV antibiotics at least 7 days.
[2017-12-07 07:30] LABS: Basophils # 0.1 K/mm3 (0-0.2); Basophils % 0.4 % (0.1-2.0); Eosinophils # 0.3 K/mm3 (0.0-0.4); Eosinophils % 1.9 % (0.1-12.0); Hematocrit 36.5 % (37.0-47.0); Hemoglobin 11.8 g/dL (12.2-16.2); Lymphocytes # 1.9 K/mm3 (0.7-4.5); Lymphocytes % 11.7 K/mm3 (10-50); Mean Corpuscular HGB Conc 32.3 g/dL (31.8-35.4); Mean Corpuscular Hemoglobin 29.2 pg (27.0-31.2); Mean Corpuscular Volume 90.4 fl (81-99); Mean Platelet Volume 7.4 fl (7.4-10.4); Monocytes # 0.9 K/mm3 (0.1-1.0); Monocytes % 5.6 % (1.7-9.3); Neutrophils # 12.8 K/mm3 (1.8-7.8); Neutrophils % 80.5 % (37.0-80.0); Platelet Count 519 K/mm3 (142-424); Red Blood Count 4.04 M/mm3 (4.20-5.40); Red Cell Distribution Width 13.6 % (11.5-17.5); White Blood Count 15.9 K/mm3 (4.8-10.8)
[2017-12-07 08:23] LABS: Calcium 8.3 mg/dL (8.5-10.1)
[2017-12-07 10:28] LABS: Lymphocytes % 11 % (10-50); Monocytes % 6 % (2-9); Myelocytes % 2 (0-1); Neutrophils % 74 % (42-76); Promyelocytes % 2 %; Total Cells Counted 100
[2017-12-07 10:30] LABS: RBC Morphology Normal
--- NOTE | 2017-12-07 14:32 | Progress Note ---
Subjective Patient reports: feels better Exam Vital signs and Labs for Last 24 Hours: Temp Pulse Resp BP Pulse Ox 98.4 F 105 H 18 134/86 97 12/07/17 08:00 12/07/17 08:00 12/07/17 08:00 12/07/17 08:00 12/07/17 08:00 Laboratory Results - last 24 hr 12/07/17 06:51: WBC 15.9 H, RBC 4.04 L, Hgb 11.8 L, Hct 36.5 L, MCV 90.4, MCH 29.2, MCHC 32.3, RDW 13.6, Plt Count 519 H D, MPV 7.4, Neut % (Auto) 80.5 H, Lymph % (Auto) 11.7, [place] % (Auto) 5.6, Eos % (Auto) 1.9, Baso % (Auto) 0.4, Neut # (Auto) 12.8 H, Lymph # (Auto) 1.9, [place] # (Auto) 0.9, Eos # (Auto) 0.3, Baso # (Auto) 0.1, Total Counted 100, Neutrophils % (Manual) 74, Band Neutrophils % 2.0, Lymphocytes % (Manual) 11, Atypical Lymphs % 1.0, Monocytes % (Manual) 6, Metamyelocytes % 2.0 H, Myelocytes % 2 H, Promyelocytes % 2, Platelet Estimate Marked increase, RBC Morphology Normal 12/07/17 06:51: Sodium 138, Potassium 4.0, Chloride 101, Carbon Dioxide 29 D, Anion Gap 12.0, BUN 5 L D, Creatinine 0.49 L, Estimated Creat Clear 223, Estimated GFR 157, Est GFR ( Amer) 189, Glucose 109 H, Calcium 8.3 L D I & O for Last 24 hours: Intake & Output 12/05/17 12/06/17 12/07/17 12/08/17 11:59 11:59 11:59 11:59 Intake Total 4243 / 4243 600 / 600 768 / 768 Output Total 200 / 200 200 / 200 Balance 4043 / 4043 400 / 400 768 / 768 Weight 174 lb 8 oz - Constitutional no acute distress - *Routine Abdominal Exam Present: soft Progress Note: A&P (1) Perforated appendicitis Status: Acute Current Visit: Yes Assessment and Plan for All Diagnoses:: Continue IV antibiotics. Still with significant leukocytosis. Tentatively plan for 10 days IV antibiotics.
--- NOTE | 2017-12-08 06:47 | Progress Note ---
Subjective Narrative: Patient states she feels okay "for the most part." Complains of some lower "stomach pains". Exam Vital signs and Labs for Last 24 Hours: Temp Pulse Resp BP Pulse Ox 97.8 F 103 H 18 120/82 95 12/08/17 04:00 12/08/17 04:00 12/08/17 04:00 12/08/17 04:00 12/08/17 04:00 Laboratory Results - last 24 hr 12/07/17 06:51: WBC 15.9 H, RBC 4.04 L, Hgb 11.8 L, Hct 36.5 L, MCV 90.4, MCH 29.2, MCHC 32.3, RDW 13.6, Plt Count 519 H D, MPV 7.4, Neut % (Auto) 80.5 H, Lymph % (Auto) 11.7, [place] % (Auto) 5.6, Eos % (Auto) 1.9, Baso % (Auto) 0.4, Neut # (Auto) 12.8 H, Lymph # (Auto) 1.9, [place] # (Auto) 0.9, Eos # (Auto) 0.3, Baso # (Auto) 0.1, Total Counted 100, Neutrophils % (Manual) 74, Band Neutrophils % 2.0, Lymphocytes % (Manual) 11, Atypical Lymphs % 1.0, Monocytes % (Manual) 6, Metamyelocytes % 2.0 H, Myelocytes % 2 H, Promyelocytes % 2, Platelet Estimate Marked increase, RBC Morphology Normal 12/07/17 06:51: Sodium 138, Potassium 4.0, Chloride 101, Carbon Dioxide 29 D, Anion Gap 12.0, BUN 5 L D, Creatinine 0.49 L, Estimated Creat Clear 223, Estimated GFR 157, Est GFR ( Amer) 189, Glucose 109 H, Calcium 8.3 L D I & O for Last 24 hours: Intake & Output 12/05/17 12/06/17 12/07/17 12/08/17 11:59 11:59 11:59 11:59 Intake Total 4243 / 4243 600 / 600 768 / 768 2457 / 2457 Output Total 200 / 200 200 / 200 200 / 200 Balance 4043 / 4043 400 / 400 768 / 768 2257 / 2257 Weight 174 lb 8 oz - Constitutional no acute distress - *Routine Abdominal Exam Present: soft Comments: Incision clean. Progress Note: A&P (1) Perforated appendicitis Status: Acute Current Visit: Yes Assessment and Plan for All Diagnoses:: Continue IV antibiotics. Recheck CBC tomorrow
[2017-12-09 07:13] LABS: Basophils # 0.1 K/mm3 (0-0.2); Basophils % 0.3 % (0.1-2.0); Eosinophils # 0.3 K/mm3 (0.0-0.4); Eosinophils % 1.6 % (0.1-12.0); Hematocrit 35.9 % (37.0-47.0); Hemoglobin 11.6 g/dL (12.2-16.2); Lymphocytes # 2.2 K/mm3 (0.7-4.5); Lymphocytes % 12.9 K/mm3 (10-50); Mean Corpuscular HGB Conc 32.2 g/dL (31.8-35.4); Mean Platelet Volume 7.4 fl (7.4-10.4); Monocytes # 1.1 K/mm3 (0.1-1.0); Monocytes % 6.3 % (1.7-9.3); Neutrophils # 13.1 K/mm3 (1.8-7.8); Neutrophils % 78.7 % (37.0-80.0); Platelet Count 573 K/mm3 (142-424); Red Blood Count 3.99 M/mm3 (4.20-5.40); Red Cell Distribution Width 13.5 % (11.5-17.5); White Blood Count 16.7 K/mm3 (4.8-10.8)
--- NOTE | 2017-12-09 07:50 | Progress Note ---
Subjective Patient reports: no new complaints, feels better Exam Vital signs and Labs for Last 24 Hours: Temp Pulse Resp BP Pulse Ox 98.3 F 93 H 18 141/77 H 100 12/09/17 04:00 12/09/17 04:00 12/09/17 04:00 12/09/17 04:00 12/09/17 04:00 Laboratory Results - last 24 hr 12/09/17 06:45: WBC 16.7 H, RBC 3.99 L, Hgb 11.6 L, Hct 35.9 L, MCV 90.0, MCH 29.0, MCHC 32.2, RDW 13.5, Plt Count 573 H, MPV 7.4, Neut % (Auto) 78.7, Lymph % (Auto) 12.9, [place] % (Auto) 6.3, Eos % (Auto) 1.6, Baso % (Auto) 0.3, Neut # (Auto) 13.1 H, Lymph # (Auto) 2.2, [place] # (Auto) 1.1 H, Eos # (Auto) 0.3, Baso # (Auto) 0.1 I & O for Last 24 hours: Intake & Output 12/06/17 12/07/17 12/08/17 12/09/17 11:59 11:59 11:59 11:59 Intake Total 600 / 600 768 / 768 2817 / 2817 3018 / 3018 Output Total 200 / 200 200 / 200 600 / 600 Balance 400 / 400 768 / 768 2617 / 2617 2418 / 2418 Weight 174 lb 8 oz - Constitutional no acute distress - *Routine Abdominal Exam Present: soft. Absent: tenderness Progress Note: A&P (1) Perforated appendicitis Status: Acute Current Visit: Yes Assessment and Plan for All Diagnoses:: Patient has further progression of leukocytosis. Given the degree of her appendicitis and progressive leukocytosis plan for CT scan of the abdomen and pelvis to rule out intra-abdominal abscess.
[2017-12-09 08:17] LABS: Eosinophils % 2 % (0-3); Lymphocytes % 10 % (10-50); Monocytes % 7 % (2-9); Neutrophils % 80 % (42-76); RBC Morphology Normal; Total Cells Counted 100
--- NOTE | 2017-12-10 07:38 | Progress Note ---
Subjective Patient reports: feels better Narrative: Patient feels well with no complaints. Exam Vital signs and Labs for Last 24 Hours: Temp Pulse Resp BP Pulse Ox 98.5 F 105 H 16 122/85 95 12/10/17 03:58 12/10/17 03:58 12/10/17 03:58 12/10/17 03:58 12/10/17 03:58 Laboratory Results - last 24 hr 12/09/17 06:45: Total Counted 100, Neutrophils % (Manual) 80 H, Band Neutrophils % 1.0, Lymphocytes % (Manual) 10, Monocytes % (Manual) 7, Eosinophils % (Manual) 2, Platelet Estimate Slight increase, RBC Morphology Normal I & O for Last 24 hours: Intake & Output 12/07/17 12/08/17 12/09/17 12/10/17 11:59 11:59 11:59 11:59 Intake Total 768 / 768 2817 / 2817 3498 / 3498 1508 / 1508 Output Total 200 / 200 600 / 600 1500 / 1500 Balance 768 / 768 2617 / 2617 2898 / 2898 8 / 8 Weight 174 lb 8 oz - Constitutional no acute distress - *Routine Abdominal Exam Present: soft. Absent: tenderness Progress Note: A&P (1) Perforated appendicitis Status: Acute Current Visit: Yes Assessment and Plan for All Diagnoses:: Patient underwent CT scan of the abdomen and pelvis yesterday due to persistent leukocytosis. This revealed several loculated fluid collections, could not rule out abscess. Overall the patient feels extremely well. I feel most likely these are loculated fluid collections from her peritonitis and operative irrigation. At this point plan will be for tentative discharge home with close outpatient follow-up with outpatient intravenous antibiotics continuing for a total of 20 days.
--- NOTE | 2017-12-10 11:58 | Discharge Summary ---
General - General Admission date:: 11/30/17 Discharge date: 12/10/17 HPI HPI: Patient is a 22-year-old white female who presented with several days of lower abdominal pain. However, over the evening prior to presentation to the emergency department her pain was rather severe. She was seen and evaluated in the emergency department found to have a leukocytosis. She had a CT scan which revealed findings of appendicitis with possible abscess at the tip. Surgical consultation was obtained. Hospital Course Hospital Course: Patient was seen and examined in the emergency department. She did have some diffuse significant abdominal tenderness. However, her CT scan was somewhat equivocal without contrast regarding possible ovarian etiology. CT scan with actual contrast was performed. This revealed markedly distended appendix. There is also finding of possible right ovarian cyst. Patient was taken to the operating room at which time she had laparoscopy. She was found to have established peritonitis with diffuse induration of the small bowel and markedly distended appendix with distal abscess within the appendix. This was unable to be successfully performed laparoscopically and she had open procedure through a right lower lateral incision and underwent successful appendectomy. At the completion of the open appendectomy laparoscopic instruments were reinserted and she underwent thorough diffuse abdominal irrigation with 9 L of saline. Patient was admitted postoperatively. Initially she was continued on perioperative Unasyn. However, she had a persistent leukocytosis and tachycardia and therefore her antibiotics were changed to intravenous Invanz. She had her Gil[place] catheter removed. She is given very limited diet. Patient had slow convalescence from her severe perforated appendicitis. She did have persistent tachycardia for several days and was given liberal fluids. She had intermittent sharp pains which she described as "gas pains". However, several days after surgery her diet was able to be advanced to a soft diet. She continued to improve and was feeling quite well 7 days postoperatively. However, interestingly, she had some progressive elevation of her white blood cell count. CBC was checked approximately 9 days postoperatively and she had a white blood cell count of 16,000. Plan was made for CT scan to evaluate for any focal abdominal abscess. CT scan revealed findings of several loculated fluid collections which were reported as "abscesses". Patient felt extremely well. She was essentially asymptomatic. Her jorje were removed on postoperative day #9 and Steri-Strips were applied. It was felt that most likely these were loculated fluid collections from operative irrigation and less likely abscesses. However, it was explained to the patient she could develop more focal abscess over time could require intervention. Given the persistent leukocytosis and nondescript loculated fluid collections plan will be for discharge home with continuation of an additional 10 days of intravenous Invanz via PICC line to be placed prior to discharge. She is going to return to the [facility] daily for 1 g IV Invanz. She is to limit from heavy lifting. I will follow her in the office in several days. He is given a new prescription for Finger for pain. She is to seek medical attention immediately if she has increasing fevers or progressive abdominal pain. Tentative plan will be for a follow-up CT scan in approximately 10 days. Objective Vital signs: Temp Pulse Resp BP Pulse Ox 97.0 F L 89 16 115/68 100 12/10/17 11:35 12/10/17 11:35 12/10/17 11:35 12/10/17 11:35 12/10/17 11:35 DS: Diagnosis - Discharge Diagnosis (1) Perforated appendicitis Status: Acute Discharge Plan - Patient Discharge Instructions ACTIVITY: No heavy lifting DIET: advance to your usual diet Patient Instructions: Appendectomy -- Open Surgery, DI for Acute Abdomen, Surgical Site Infection - Follow up Plan Follow up with: Provider,MD Danie [Primary Care Provider] - Keith Jang MD [Staff Physician] - 1 week Disposition: Home, Self-Correction Medications: Home Medications Medication Instructions Recorded Confirmed Type No Known Home Medications 11/30/17 11/30/17 History Prescriptions/Medication Reconciliation: New Hydrocod/Acet 5/325 mg [Finger 5/325mg tablet] 1 - 2 tab PO Q6HP PRN #21 tab PRN Reason: Mild To Moderate Pain No Action No Known Home Medications
== END 2017-12-10 15:40 | disposition home or self-care (01) ==
LOC: ER 05:50 → 2ND 11:19 → OR 11:19 → OBSVTOIN 11:26
PROVIDERS: ADMIT Surgery; ATTEND Surgery

== ENCOUNTER 2017-12-11 16:36 | Outpatient (CLI) | payer BC, SELFPAY ==
[2017-12-11 16:56] VITALS: BP 120/69; PULSE 70; RESP 20; TEMP 36.1; O2SAT 97; BMI 28.3
== END 2017-12-11 17:25 | disposition home or self-care (01) ==
LOC: INF 16:38
PROVIDERS: PCP Family Medicine; Visit Provider Surgery
DX: K35.20 Acute appendicitis with generalized peritonitis, without abscess (principal)
CPT/HCPCS: 96365; J1335

== ENCOUNTER 2017-12-12 16:28 | Outpatient (CLI) | payer BC, SELFPAY ==
[2017-12-12 16:29] VITALS: BMI 28.3
[2017-12-12 16:32] VITALS: BP 133/85; PULSE 104; RESP 17; O2SAT 97
== END 2017-12-12 17:00 | disposition home or self-care (01) ==
LOC: INF 16:29
PROVIDERS: PCP Family Medicine; Visit Provider Surgery
DX: K35.32 Acute appendicitis with perforation, localized peritonitis, and gangrene, without abscess (principal)
CPT/HCPCS: 96365; J1335

== ENCOUNTER 2017-12-13 16:09 | Outpatient (CLI) | payer BC, SELFPAY ==
[2017-12-13 16:15] VITALS: BP 112/81; PULSE 79; RESP 18; TEMP 36.8; O2SAT 98
[2017-12-13 16:30] VITALS: BP 111/78; PULSE 87; RESP 18; TEMP 36.8; O2SAT 97
[2017-12-13 17:10] VITALS: BP 117/79; PULSE 94; RESP 18; O2SAT 98
== END 2017-12-13 17:15 | disposition home or self-care (01) ==
LOC: INF 16:10
PROVIDERS: PCP Family Medicine; Visit Provider Surgery
DX: K35.32 Acute appendicitis with perforation, localized peritonitis, and gangrene, without abscess (principal)
CPT/HCPCS: 96365; J1335

== ENCOUNTER 2017-12-14 16:19 | Outpatient (CLI) | payer BC, SELFPAY ==
[2017-12-14 16:45] VITALS: BP 118/79; PULSE 90; RESP 20; TEMP 36.9; O2SAT 95
[2017-12-14 17:28] VITALS: BP 119/78; PULSE 68; RESP 20; TEMP 36.9; O2SAT 96
== END 2017-12-14 17:30 | disposition home or self-care (01) ==
LOC: INF 16:20
PROVIDERS: PCP Family Medicine; Visit Provider Surgery
DX: K35.32 Acute appendicitis with perforation, localized peritonitis, and gangrene, without abscess (principal)
CPT/HCPCS: 96365; J1335

== ENCOUNTER 2017-12-15 16:10 | Outpatient (CLI) | payer BC, SELFPAY ==
[2017-12-15 16:25] VITALS: BP 119/81; PULSE 90; RESP 18; TEMP 36.4; O2SAT 97
[2017-12-15 17:05] VITALS: BP 112/79; PULSE 92; RESP 16
== END 2017-12-15 17:20 | disposition home or self-care (01) ==
LOC: INF 16:18
PROVIDERS: Visit Provider Surgery
DX: K35.32 Acute appendicitis with perforation, localized peritonitis, and gangrene, without abscess (principal)
CPT/HCPCS: 96365; J1335

== ENCOUNTER 2017-12-16 16:11 | Outpatient (CLI) | payer BC, SELFPAY ==
[2017-12-16 16:25] VITALS: BP 118/82; PULSE 86; RESP 18; O2SAT 97
[2017-12-16 17:05] VITALS: BP 117/87; PULSE 97; RESP 18; TEMP 36.7
== END 2017-12-16 17:20 | disposition home or self-care (01) ==
LOC: INF 16:12
PROVIDERS: Visit Provider Surgery
DX: K35.32 Acute appendicitis with perforation, localized peritonitis, and gangrene, without abscess (principal)
CPT/HCPCS: 96365; J1335

== ENCOUNTER 2017-12-17 14:38 | Outpatient (CLI) | payer BC, SELFPAY ==
[2017-12-17 15:03] VITALS: BP 116/81; PULSE 83; RESP 18; TEMP 36.6; O2SAT 98
[2017-12-17 15:23] VITALS: BP 112/64; PULSE 78; RESP 18; TEMP 36.6; O2SAT 97
[2017-12-17 15:45] VITALS: BP 112/65; PULSE 76; RESP 18; TEMP 36.6; O2SAT 98
[2017-12-17 15:50] LABS: Basophils % 0.4 % (0.1-2.0); Eosinophils # 0.2 K/mm3 (0.0-0.4); Eosinophils % 2.6 % (0.1-12.0); Hemoglobin 11.7 g/dL (12.2-16.2); Lymphocytes # 2.2 K/mm3 (0.7-4.5); Lymphocytes % 26.6 K/mm3 (10-50); Mean Corpuscular HGB Conc 30.7 g/dL (31.8-35.4); Mean Corpuscular Hemoglobin 28.3 pg (27.0-31.2); Mean Corpuscular Volume 92.2 fl (81-99); Mean Platelet Volume 7.9 fl (7.4-10.4); Monocytes # 0.5 K/mm3 (0.1-1.0); Monocytes % 6.4 % (1.7-9.3); Neutrophils # 5.4 K/mm3 (1.8-7.8); Platelet Count 519 K/mm3 (142-424); Red Blood Count 4.12 M/mm3 (4.20-5.40); Red Cell Distribution Width 13.4 % (11.5-17.5); White Blood Count 8.4 K/mm3 (4.8-10.8)
[2017-12-17 16:21] LABS: Anion Gap 12.1 mEq/L (5-15); Blood Urea Nitrogen 8 mg/dL (7-18); Calcium 8.8 mg/dL (8.5-10.1); Carbon Dioxide 29 mmol/L (21.0-32.0); Chloride 102 mmol/L (98-107); Creatinine,Serum 0.62 mg/dL (0.55-1.02); Estimated Glomerular Filt Rate 119 ml/min (>60); GFR (African American) 144 ML/MIN (>60); Glucose 96 mg/dL (74-106); Potassium 4.1 mmoL/L (3.5-5.1); Sodium 139 mmol/L (136-145)
== END 2017-12-17 15:50 | disposition home or self-care (01) ==
LOC: INF 14:39
PROVIDERS: Visit Provider Surgery
DX: K35.32 Acute appendicitis with perforation, localized peritonitis, and gangrene, without abscess (principal); R10.9 Unspecified abdominal pain
CPT/HCPCS: 36415; 80048; 85025; 96365; J1335

== ENCOUNTER → 2017-12-18 16:04 | Outpatient (CLI) | payer BC, SELFPAY ==
[2017-12-18 16:18] VITALS: BP 124/76; PULSE 89; RESP 18; TEMP 36.6; O2SAT 97; BMI 28.3
[2017-12-18 16:58] VITALS: BP 144/73; PULSE 82; RESP 16; TEMP 36.6; O2SAT 98
== END ==
PROVIDERS: PCP Family Medicine; Visit Provider Surgery
DX: K35.32 Acute appendicitis with perforation, localized peritonitis, and gangrene, without abscess (principal)
CPT/HCPCS: 96365; J1335

== ENCOUNTER → 2017-12-19 15:21 | Outpatient (CLI) | payer BC, SELFPAY ==
[2017-12-19 15:21] VITALS: BP 132/58; PULSE 79; RESP 16; TEMP 36.7; O2SAT 98
[2017-12-19 15:40] VITALS: BP 135/61; PULSE 85; RESP 16; TEMP 36.9; O2SAT 98; BMI 28.3
== END ==
PROVIDERS: PCP Family Medicine; Visit Provider Surgery
DX: K35.32 Acute appendicitis with perforation, localized peritonitis, and gangrene, without abscess (principal)
CPT/HCPCS: 96365; J1335

== ENCOUNTER → 2017-12-20 13:17 | Outpatient (CLI) | payer BC, SELFPAY ==
--- NOTE | 2017-12-20 13:25 | CT_ITS ---
CT abdomen pelvis w con INDICATION: Follow-up appendiceal abscess with Recent appendectomy . Postoperative fluid collections/possible abscesses on previous CT studies ITS.REASON: abdominal pain. Marked improvement clinically per Dr. Jang with now normal WBC . Antibiotics approximately 3 weeks ORDERING PHYSICIAN: Keith Jang MD PATIENT AGE: 22 years COMPARISON: CT abdomen pelvis 12/09/2017 with contrast, & 11/30/2017, 9:50 AM ; CT abdomen without contrast 11/30/2017 6:30 AM. . TECHNIQUE: 75 cc Isovue-370 IV administered through the patient's PICC line on enteric contrast diluted Gastroview was also utilized. Axial images obtained with sagittal and coronal reformats. All CT scans at the facility use one or more dose reduction, viz: automated exposure control, ma/kV adjustment per patient size (including targeted exams where dose is matched to indication, i.e. head), or iterative reconstruction technique. FINDINGS: Lung bases clear heart normal size. Abdomen/pelvis. Overall marked improvement since 12/09/2017. -We no longer see the large fluid collections along the anterior right and left abdomen previously seen.. These appear to reflect either residual loculated fluid collections or possibly abscess collections and for the most part have since resolved. There is still some likely stippled small loculated fluid collections at the lower pelvic basin just just superior to the uterus and towards right adnexa more so than left. Some of these could be related to ovarian cyst and you may want to consider a follow-up pelvic ultrasound. Uterus deviates the left. Moderate endometrial stripe.. There also is some persistent mildly thickened small bowel loops at the lower pelvic basin with slight dilated distal ileum measuring up to 2 cm diameter. Borderline dilatation of proximal bowel loops with some scattered air-fluid levels & slow transit a likely reflecting a persistent mild ileus. There is a persistent t hazy appearance of fat seen towards right and left flank & towards pelvis which suggestive of improved but residual inflammatory changes from recent events and recent surgery. On this hazy appearance particularly evident pericolic fat anterior to the right colon there is prominent, increased stool stool at the right colon which may reflect minor constipation or may be reflection of mild ileus. Generous stool rectum and towards rectosigmoid also noted, with relative lack stool at the descending colon ... I discussed this case with Dr. Jang- and it sounds patient is much much better clinically with resolution of pain and now normal white count. Thus conceivably these could reflect sequela of recent surgery and prominent irrigation performed at time of surgery. Liver unremarkable. The gallbladder. No gallstones. Spleen unremarkable. Right Kidney. Small nonobstructive calculus upper pole calyx right kidney. Left kidney unremarkable. Ureters satisfactory. Urinary bladder unremarkable Osseous structures unremarkable IMPRESSION: 1. Overall there is been Marked improvement since 12/09/2017 with marked regression & significant clearing of multiple prominent fluid collection since previously.-these were felt to be loculated fluid or possible abscesses on previous study 12/09/17. 2. On today's study we do see what appear to be small loculated fluid collections throughout, pelvic basin most evident towards the right lower quadrant and region of resected appendix. Although initially question small residual abscesses, I understand after discussed with Dr. Jang the patient has a normal WBC count & symptoms have resolved. Thus this appearance could reflect small pockets of residual loculated fluid from the recent procedure and events..... But Will require close
== END ==
PROVIDERS: Visit Provider Surgery
DX: K35.80 Unspecified acute appendicitis (principal); R10.9 Unspecified abdominal pain
CPT/HCPCS: 74177; Q9967

== ENCOUNTER 2017-12-20 14:36 | Outpatient (CLI) | payer BC, SELFPAY ==
[2017-12-20 14:53] VITALS: BP 141/79; PULSE 87; RESP 18; TEMP 36.4; O2SAT 97
[2017-12-20 15:20] VITALS: BP 132/76; PULSE 75; RESP 18; TEMP 36.6; O2SAT 98
[2017-12-20 15:40] VITALS: BP 129/78; PULSE 74; RESP 18; TEMP 36.6; O2SAT 97
[2017-12-20 16:17] VITALS: BP 127/69; PULSE 76; RESP 16; TEMP 36.6; O2SAT 98
== END 2017-12-20 16:20 | disposition home or self-care (01) ==
LOC: INF 14:36
PROVIDERS: Visit Provider Surgery
DX: K35.80 Unspecified acute appendicitis (principal); R10.9 Unspecified abdominal pain
CPT/HCPCS: 96365; J1335